=== PATIENT | male | born 1960 | race Caucasian/White ===

== ENCOUNTER 2016-11-02 17:51 | Emergency (ER) | payer BC ==
[2016-11-02 19:59] VITALS: BP 145/76
--- NOTE | 2016-11-02 20:18 | UC ---
Throat Pain/Nasal Nikolai HPI - HPI Summary HPI Summary: sinus congestion and cough for 2 weeks, seems to be getting worse. Malaise, PND , bright green drainage. He is diabetic, BG's a bit high with illness. No fever. No vomiting. No rash. Did get flu and pneumonia shots - History of Current Complaint Chief Complaint: UCRespiratory Stated Complaint: UPPER RESPIRATORY Time Seen by Provider: 11/02/16 19:44 Hx Obtained From: Patient Onset/Duration: Gradual Onset, Lasting Weeks - 2 Severity: Moderate Cough: Productive Associated Signs & Symptoms: Positive: Dysphagia, Wheezing - on occasion, Hoarseness, Sinus Discomfort, Nasal Discharge. Negative: Fever, Vomiting, Rash - Epiglottits Risk Factors Epiglottis Risk Factors: Negative - Allergies/Home Medications Allergies/Adverse Reactions: Allergies Allergy/AdvReac Type Severity Reaction Status Date / Time Enalapril Allergy Unknown Verified 11/02/16 19:51 Reaction Details PMH/Surg Hx/FS Hx/Imm Hx Endocrine History Of: Reports: Diabetes - type II, non insulin dependent Denies: Thyroid Disease, Hyperthyroidism, Hypothyroidism, Dyslipidemia Cardiovascular History Of: Reports: Hypertension Denies: Cardiac Disorders, Pacemaker/ICD, Myocardial Infarction, Congestive Heart Failure, Atrial Fibrillation, Deep Vein Thrombosis, Bleeding Disorders Respiratory History Of: Denies: Asthma GI/ History Of: Denies: Gastroesophageal Reflux, Ulcer, Gastrointestinal Bleed, Gall Bladder Disease, Kidney Stones, Diverticulitis, Renal Disease, Urosepsis Neurological History Of: Denies: TIA, CVA, Dementia, Seizures, Migraine Psychological History Of: Denies: Anxiety, Depression, Bipolar Disorder, Schizophrenia, Post Traumatic Stress Disorder Cancer History Of: Denies: Lung Cancer, Colorectal Cancer, Breast Cancer, Prostate Cancer, Cervical Cancer Other History Of: Negative For: HIV, Hepatitis B, Hepatitis C - Surgical History Surgical History: Yes Surgery Procedure, Year, and Place: bi lat shoulders, L knee, mass removed from abdomen 2002. right knee with DVT x3 following in right leg - Family History Known Family History: Positive: Cardiac Disease, Hypertension, Diabetes - Social History Occupation: Employed Full-time Lives: With Family Alcohol Use: None Substance Use Type: None Smoking Status (MU): Never Smoked Tobacco - Immunization History Most Recent Influenza Vaccination: FALL 2015 Most Recent Pneumonia Vaccination: FALL 2015 Review of Systems Constitutional: Chills, Fatigue Skin: Negative Eyes: Negative ENT: Sore Throat, Ear Ache, Nasal Discharge Respiratory: Cough Cardiovascular: Negative Gastrointestinal: Negative Genitourinary: Negative Motor: Negative Neurovascular: Negative Musculoskeletal: Negative Neurological: Negative Psychological: Negative All Other Systems Reviewed And Are Negative: Yes Physical Exam Triage Information Reviewed: Yes Appearance: Well-Appearing, No Pain Distress, Well-Nourished Vital Signs: Initial Vital Signs Temp 97.7 F 11/02/16 19:52 Pulse 82 11/02/16 19:52 Resp 20 11/02/16 19:52 BP 145/76 11/02/16 19:52 Pulse Ox 97 11/02/16 19:52 Vital Signs Reviewed: Yes Eye Exam: Normal ENT: Positive: Hearing grossly normal, Pharyngeal erythema, Nasal congestion, TMs normal, Muffled/hoarse voice - hoarse. Negative: Tonsillar swelling, Tonsillar exudate, Trismus Neck exam: Normal Neck: Positive: Supple Respiratory Exam: Normal Respiratory: Positive: Lungs clear, Normal breath sounds, No respiratory distress, No accessory muscle use - productive cough Cardiovascular Exam: Normal Musculoskeletal Exam: Normal Neurological Exam: Normal Psychological Exam: Normal Skin Exam: Normal Throat Pain/Nasal Course/Dx - Differential Dx/Diagnosis Differential Diagnosis/HQI/PQRI: Sinusitis, URI Provider Diagnoses: sinusitis Discharge - Discharge Plan Condition: Stable Disposition: HOME Prescriptions: Azithromycin TAB* [Zithromax TAB (Z-BRENTON) 250 mg #6 tabs] 2 tab PO .TODAY, THEN 1 DAILY #1 brenton Patient Education Materials: Sinusitis (ED) Referrals: Adali Tubbs MD [Primary Care Provider] -
== END 2016-11-02 20:21 | disposition home or self-care (01) ==
LOC: UCCORT 17:51
DX: J32.9 Chronic sinusitis, unspecified (principal); I10 Essential (primary) hypertension
CPT/HCPCS: 99212; G0463

== ENCOUNTER 2016-12-06 07:45 | Emergency (ER) | payer BC ==
--- NOTE | 2016-12-06 07:55 | UC ---
Respiratory Complaint HPI - HPI Summary HPI Summary: Cough and congestion. He has sinus pressure as well. chills last night. no known fever. this started on Tuesday. - History of Current Complaint Stated Complaint: SINUS/CHEST CONGESTION CHILLS Time Seen by Provider: 12/06/16 07:50 Hx Obtained From: Patient Onset/Duration: Gradual Onset, Lasting Days Severity Initially: Moderate Severity Currently: Moderate Character: Cough: Nonproductive Associated Signs And Symptoms: Positive: URI, Nasal Congestion. Negative: Pleuritic Chest Pain, Hemoptysis, Dizziness, Calf Swelling, Edema - Risk Factors Pulmonary Embolism Risk Factors: Negative - Allergies/Home Medications Allergies/Adverse Reactions: Allergies Allergy/AdvReac Type Severity Reaction Status Date / Time Enalapril Allergy Unknown Verified 11/02/16 19:51 Reaction Details PMH/Surg Hx/FS Hx/Imm Hx Endocrine History Of: Reports: Diabetes - type II, non insulin dependent Denies: Thyroid Disease, Hyperthyroidism, Hypothyroidism, Dyslipidemia Cardiovascular History Of: Reports: Hypertension Denies: Cardiac Disorders, Pacemaker/ICD, Myocardial Infarction, Congestive Heart Failure, Atrial Fibrillation, Deep Vein Thrombosis, Bleeding Disorders Respiratory History Of: Denies: Asthma GI/ History Of: Denies: Gastroesophageal Reflux, Ulcer, Gastrointestinal Bleed, Gall Bladder Disease, Kidney Stones, Diverticulitis, Renal Disease, Urosepsis Neurological History Of: Denies: TIA, CVA, Dementia, Seizures, Migraine Psychological History Of: Denies: Anxiety, Depression, Bipolar Disorder, Schizophrenia, Post Traumatic Stress Disorder Cancer History Of: Denies: Lung Cancer, Colorectal Cancer, Breast Cancer, Prostate Cancer, Cervical Cancer Other History Of: Negative For: HIV, Hepatitis B, Hepatitis C - Surgical History Surgical History: Yes Surgery Procedure, Year, and Place: bi lat shoulders, L knee, mass removed from abdomen 2002. right knee with DVT x3 following in right leg - Family History Known Family History: Positive: Cardiac Disease, Hypertension, Diabetes - Social History Alcohol Use: None Substance Use Type: None Smoking Status (MU): Never Smoked Tobacco - Immunization History Most Recent Influenza Vaccination: FALL 2015 Most Recent Pneumonia Vaccination: FALL 2015 Review of Systems All Other Systems Reviewed And Are Negative: Yes Physical Exam Triage Information Reviewed: Yes Appearance: Well-Appearing, No Pain Distress, Obese Vital Signs Reviewed: Yes Eye Exam: Normal Eyes: Positive: Conjunctiva Clear ENT: Positive: Normal ENT inspection, Hearing grossly normal, Pharyngeal erythema, Nasal congestion, TMs normal. Negative: TM bulging, TM dull, TM red, Tonsillar swelling, Tonsillar exudate, Trismus, Muffled/hoarse voice Neck exam: Normal Neck: Positive: Supple, Nontender, No Lymphadenopathy. Negative: Nuchal Rigidity, Tenderness @, Enlarged Nodes @ Respiratory Exam: Normal Respiratory: Positive: Chest non-tender, Lungs clear, Normal breath sounds, No respiratory distress, No accessory muscle use Cardiovascular Exam: Normal Cardiovascular: Positive: RRR, No Murmur, Pulses Normal, Brisk Capillary Refill Abdomen Description: Positive: Nontender, No Organomegaly, Soft. Negative: Distended, Guarding Musculoskeletal Exam: Normal Musculoskeletal: Positive: Strength Intact, ROM Intact, No Edema Neurological Exam: Normal Neurological: Positive: Alert, Muscle Tone Normal. Negative: Fatigued, Lethargic, Unresponsive Psychological Exam: Normal Skin Exam: Normal Skin: Negative: rashes Respiratory Course/Dx - Course Course Of Treatment: URI symptoms. no signs of being toxic in that he is pleasant and comfortable appearing. No clinical signs of pnuemonia. supportive care and he will return for any worsening symptoms. z pack to be filled if not improving. - Differential Dx/Diagnosis Differential Diagnosis/HQI/PQRI: Airway Obstruction, Foreign Body, Aspiration, Asthma, Bronchitis, CHF, Pulmonary Edema, Influenza, Laryngitis, Lower Resp Infection, MRSA, Pneumothorax, Pulmonary Embolism, Sinusitis, Tuberculosis Provider Diagnoses: upper respiratory infection Discharge - Discharge Plan Condition: Good Disposition: HOME Prescriptions: Azithromyxin BRENTON (NF) [Z-Brenton (Zithromax) 250 mg tabs #6] 2 tab PO .TODAY, THEN 1 DAILY #6 tab Patient Education Materials: Upper Respiratory Infection (ED) Forms: *Work Release Referrals: Adali Tubbs MD [Primary Care Provider] - If Needed
[2016-12-06 07:56] VITALS: BP 144/81
== END 2016-12-06 08:12 | disposition home or self-care (01) ==
LOC: UCCORT 07:45
DX: J06.9 Acute upper respiratory infection, unspecified (principal); E66.9 Obesity, unspecified
CPT/HCPCS: 99212; G0463

== ENCOUNTER 2016-12-08 07:06 | Emergency (ER) | payer BC ==
[2016-12-08] MEDS ORDERED: Levalbuterol 0.63MG/3ML NEB ONE (07:28)
[2016-12-08] MEDS ORDERED: Ipratropium 0.5MG/2.5ML NEB* 0.5 MG/2.5 ML NEB.SOLN ONE (07:29)
[2016-12-08] MEDS ORDERED: Levalbuterol 1.25MG/0.5ML NEB INH ONE (07:33)
[2016-12-08] MEDS ORDERED: Ipratropium 0.5MG/2.5ML NEB* 0.5 MG/2.5 ML NEB.SOLN INH ONE (07:33)
--- NOTE | 2016-12-08 07:42 | UC ---
Respiratory Complaint HPI - History of Current Complaint Chief Complaint: UCRespiratory Stated Complaint: RE-CK/SINUSES,CONGESTION Time Seen by Provider: 12/08/16 07:33 Hx Obtained From: Patient Onset/Duration: Gradual Onset, Lasting Days - Has been ill for 5 days and today , started feeling very congested with increased cough and tightness in chest. Timing: Intermittent Episodes Severity Initially: Mild Severity Currently: Moderate Pain Scale Used: 0-10 Numeric - 0 Character: Cough: Productive Aggravating Factors: Exertion, Deep Breaths Alleviating Factors: Nothing Associated Signs And Symptoms: Positive: Dyspnea, Chills - none, Nasal Congestion - Risk Factors Cardiac Risk Factors: Hypertension, Diabetes Pseudomonas Risk Factors: Negative Tuberculosis Risk Factors: Negative - See list - Allergies/Home Medications Allergies/Adverse Reactions: Allergies Allergy/AdvReac Type Severity Reaction Status Date / Time Enalapril Allergy Unknown Verified 12/08/16 07:13 Reaction Details PMH/Surg Hx/FS Hx/Imm Hx Endocrine History Of: Reports: Diabetes - type II, non insulin dependent Denies: Thyroid Disease, Hyperthyroidism, Hypothyroidism, Dyslipidemia - Recent treatment with Azithromycin for 3 days . No t helping. Cardiovascular History Of: Reports: Hypertension Denies: Cardiac Disorders, Pacemaker/ICD, Myocardial Infarction, Congestive Heart Failure, Atrial Fibrillation, Deep Vein Thrombosis, Bleeding Disorders Respiratory History Of: Denies: Asthma GI/ History Of: Denies: Gastroesophageal Reflux, Ulcer, Gastrointestinal Bleed, Gall Bladder Disease, Kidney Stones, Diverticulitis, Renal Disease, Urosepsis Neurological History Of: Denies: TIA, CVA, Dementia, Seizures, Migraine Psychological History Of: Denies: Anxiety, Depression, Bipolar Disorder, Schizophrenia, Post Traumatic Stress Disorder Cancer History Of: Denies: Lung Cancer, Colorectal Cancer, Breast Cancer, Prostate Cancer, Cervical Cancer Other History Of: Negative For: HIV, Hepatitis B, Hepatitis C - Surgical History Surgical History: Yes Surgery Procedure, Year, and Place: bi lat shoulders, L knee, mass removed from abdomen 2002. right knee with DVT x3 following in right leg - Family History Known Family History: Positive: Cardiac Disease, Hypertension, Diabetes - Social History Alcohol Use: None Substance Use Type: None Smoking Status (MU): Never Smoked Tobacco - Immunization History Most Recent Influenza Vaccination: FALL 2015 Most Recent Pneumonia Vaccination: FALL 2015 Review of Systems Constitutional: Chills, Fatigue Skin: Negative Eyes: Negative ENT: Nasal Discharge Respiratory: Shortness Of Breath - with exertion., Cough - productive of yellow sputum. Cardiovascular: Negative Gastrointestinal: Negative Genitourinary: Negative Motor: Negative Neurovascular: Negative Musculoskeletal: Negative Neurological: Negative Psychological: Negative All Other Systems Reviewed And Are Negative: Yes Physical Exam Triage Information Reviewed: Yes Appearance: Well-Appearing Vital Signs: Initial Vital Signs Temp 98.3 F 12/08/16 07:14 Pulse 77 12/08/16 07:14 Resp 18 12/08/16 07:14 BP 152/86 12/08/16 07:14 Pulse Ox 96 12/08/16 07:14 ENT Exam: Other - clear nasal discharge. No blood. Throat ia mildly erythematous. ENT: Positive: Pharyngeal erythema Dental Exam: Normal Neck exam: Normal Neck: Positive: Supple, Nontender Respiratory: Positive: Chest non-tender, Wheezing - +2 diffusely Cardiovascular Exam: Normal Cardiovascular: Positive: RRR, No Murmur Abdomen Description: Positive: Nontender, No Organomegaly, Soft Bowel Sounds: Positive: Present Musculoskeletal Exam: Normal Neurological Exam: Normal Psychological Exam: Normal Skin Exam: Normal UC Diagnostic Evaluation - Laboratory O2 Sat by Pulse Oximetry: 96 Re-Evaluation - Re-Evaluation First Eval Change: Improved - Lungs are now clear to auscultation. Respiratory Course/Dx - Course Course Of Treatment: Patient had neb xopenex and atrovent. Lungs now- - Differential Dx/Diagnosis Differential Diagnosis/HQI/PQRI: Bronchitis Provider Diagnoses: acute bronchitis, viral Discharge - Discharge Plan Condition: Improved Disposition: HOME Prescriptions: Albuterol HFA INHALER* [Ventolin HFA Inhaler*] 1 puff INH Q4H PRN #1 mdi PRN Reason: Sob/Wheezing Patient Education Materials: Acute Bronchitis (ED) Additional Instructions: May try Mucinex DM one tab every 12 hours. Use humidifier. Increase fluids to stay well hydrated. Use the albuterol as needed for cough and wheezing. Saline nose spray for nasal congestion. May use Coriciden HB for congestion as well. Cepacol throat lozenges can help the cough , as well.
[2016-12-08 08:42] VITALS: BP 132/66
== END 2016-12-08 08:45 | disposition home or self-care (01) ==
LOC: UCCORT 07:06
DX: J20.8 Acute bronchitis due to other specified organisms (principal)
CPT/HCPCS: 99212; A9270-GY; G0463; J7644

== ENCOUNTER 2017-09-09 12:12 | Emergency (ER) | payer BC ==
[2017-09-09 13:47] VITALS: BP 147/86
--- NOTE | 2017-09-09 14:10 | UC ---
Throat Pain/Nasal Nikolai HPI - HPI Summary HPI Summary: TWO WEEKS OF WORSENING SINUS PRESSURE AND PAIN - History of Current Complaint Chief Complaint: UCRespiratory Stated Complaint: SINUS COUGH UPPER RESPIRATORY Time Seen by Provider: 09/09/17 13:48 Hx Obtained From: Patient Onset/Duration: Gradual Onset, Lasting Weeks, Still Present Severity: Moderate Pain Intensity: 6 Pain Scale Used: 0-10 Numeric Cough: Nonproductive Associated Signs & Symptoms: Positive: Sinus Discomfort, Nasal Discharge - Epiglottits Risk Factors Epiglottis Risk Factors: Negative - Allergies/Home Medications Allergies/Adverse Reactions: Allergies Allergy/AdvReac Type Severity Reaction Status Date / Time Enalapril Allergy Unknown Verified 09/09/17 13:40 Reaction Details PMH/Surg Hx/FS Hx/Imm Hx Previously Healthy: Yes Other History Of: Negative For: HIV, Hepatitis B, Hepatitis C - Surgical History Surgical History: Yes Surgery Procedure, Year, and Place: bi lat shoulders, L knee, mass removed from abdomen 2002. right knee with DVT x3 following in right leg - Family History Known Family History: Positive: Cardiac Disease, Hypertension, Diabetes - Social History Occupation: Employed Full-time Lives: With Family Alcohol Use: None Substance Use Type: None Smoking Status (MU): Never Smoked Tobacco - Immunization History Most Recent Influenza Vaccination: 2016 Most Recent Pneumonia Vaccination: FALL 2015 Review of Systems Constitutional: Negative Skin: Negative Eyes: Negative ENT: Sinus Congestion, Sinus Pain/Tenderness Respiratory: Cough Cardiovascular: Negative Gastrointestinal: Negative Genitourinary: Negative Motor: Negative Neurovascular: Negative Musculoskeletal: Negative Neurological: Negative Psychological: Negative Is Patient Immunocompromised?: No All Other Systems Reviewed And Are Negative: Yes Physical Exam Triage Information Reviewed: Yes Appearance: No Pain Distress, Well-Nourished, Ill-Appearing - MILDLY Vital Signs: Initial Vital Signs Temp 97.4 F 09/09/17 13:41 Pulse 95 09/09/17 13:41 Resp 18 09/09/17 13:41 BP 147/86 09/09/17 13:41 Pulse Ox 99 09/09/17 13:41 Vital Signs Reviewed: Yes Eye Exam: Normal ENT: Positive: Nasal congestion, Nasal drainage, TM dull Dental Exam: Normal Neck exam: Normal Neck: Positive: Supple, Nontender, No Lymphadenopathy Respiratory Exam: Normal Respiratory: Positive: Chest non-tender, Lungs clear, Normal breath sounds, No respiratory distress, No accessory muscle use Cardiovascular Exam: Normal Cardiovascular: Positive: RRR, No Murmur, Pulses Normal, Brisk Capillary Refill Abdominal Exam: Normal Musculoskeletal Exam: Normal Neurological Exam: Normal Psychological Exam: Normal Skin Exam: Normal Throat Pain/Nasal Course/Dx - Differential Dx/Diagnosis Differential Diagnosis/HQI/PQRI: Pharyngitis, Sinusitis, Tonsillitis, URI Provider Diagnoses: SINUSITIS Discharge - Discharge Plan Condition: Stable Disposition: HOME Prescriptions: Amoxicillin/Clavulanate TAB* [Augmentin TAB 875*] 875 mg PO BID #20 tab Patient Education Materials: Sinusitis (ED) Referrals: Adali Tubbs MD [Primary Care Provider] -
== END 2017-09-09 14:04 | disposition home or self-care (01) ==
LOC: UCCORT 12:12
DX: J32.9 Chronic sinusitis, unspecified (principal)
CPT/HCPCS: 99212; G0463

== ENCOUNTER 2017-12-26 15:54 | Emergency (ER) | payer BC ==
[2017-12-26 17:47] VITALS: BP 129/74
--- NOTE | 2017-12-26 17:59 | UC ---
Respiratory Complaint HPI - HPI Summary HPI Summary: Pt presents to reporting 2 weeks of sinus congestion and 1 week "Settled in throat" Pt reports coarse, intermittent cough with green sputum. no fevers, + fatigue. No n/v. + ear pain. + sinus congestion. no sore throat. No abd pain. No n/v/d No AUGUSTIN, vision changes. Pt without h/o lung dx. Pt states has chest pain that he thinks is muscular and related to cough. + fevers low grade 100. Taking APAP. No OTC meds for cough/congestion second to concern for BP Pt's medications reviewed this visit - History of Current Complaint Chief Complaint: UCRespiratory Stated Complaint: SINUS/CHEST CONGESTION/COUGH Time Seen by Provider: 12/26/17 17:56 Hx Obtained From: Patient Onset/Duration: Gradual Onset Timing: Constant Severity Initially: Moderate Severity Currently: Moderate Pain Intensity: 5 Pain Scale Used: 0-10 Numeric Character: Cough: Productive, Sputum Description: - green - Allergies/Home Medications Allergies/Adverse Reactions: Allergies Allergy/AdvReac Type Severity Reaction Status Date / Time enalapril Allergy Rash Verified 12/26/17 17:37 enalaprilat [From Vasotec] Allergy Rash Verified 12/26/17 17:37 sitagliptin [From Januvia] Allergy Rash Verified 12/26/17 17:37 Home Medications: Home Medications Guaifenesin/Dextromethorphan [Mucinex Dm ER 600-30 mg Tablet] 1 each PO BID PRN 12/26/17 [History Confirmed 12/26/17] Ibuprofen TAB* [Motrin TAB* 800 MG] 800 mg PO Q6H PRN 12/26/17 [History Confirmed 12/26/17] PMH/Surg Hx/FS Hx/Imm Hx Previously Healthy: Yes Endocrine History: Diabetes - no insulin Cardiovascular History: Hypertension Other History Of: Negative For: HIV, Hepatitis B, Hepatitis C - Surgical History Surgical History: Yes Surgery Procedure, Year, and Place: bi lat shoulders, L knee, mass removed from abdomen 2002. right knee with DVT x3 following in right leg - Family History Known Family History: Positive: Cardiac Disease, Hypertension, Diabetes - Social History Occupation: Employed Full-time Lives: With Family Alcohol Use: None Substance Use Type: None Smoking Status (MU): Never Smoked Tobacco - Immunization History Most Recent Influenza Vaccination: 2016 Most Recent Pneumonia Vaccination: FALL 2016 Review of Systems Constitutional: Fever Respiratory: Shortness Of Breath, Cough All Other Systems Reviewed And Are Negative: Yes Physical Exam Triage Information Reviewed: Yes Appearance: Well-Appearing, No Pain Distress - coarse, intermittent cough, Well- Nourished Vital Signs: Initial Vital Signs Temp 99.1 F 12/26/17 17:40 Pulse 90 12/26/17 17:40 Resp 20 12/26/17 17:40 BP 129/74 12/26/17 17:40 Pulse Ox 97 12/26/17 17:40 Vital Signs Reviewed: Yes Eye Exam: Normal ENT Exam: Normal ENT: Positive: Hearing grossly normal, Pharynx normal, Other - right ear ++ erythema, + fluid left TM wnl turbinates boggy + PND + erythema, no exudate Dental Exam: Normal Neck exam: Normal Neck: Positive: Supple, Nontender, No Lymphadenopathy Respiratory: Positive: Other: - intermittent coarse cough scattered wheeze, no rhonci speaking full sentences no accessory muscle use. Negative: Chest non- tender - mild anterior chest wall pain b/l, reproducible Cardiovascular Exam: Normal Cardiovascular: Positive: RRR, No Murmur Abdominal Exam: Normal Abdomen Description: Positive: Nontender, No Organomegaly, Soft Bowel Sounds: Positive: Present Musculoskeletal Exam: Normal Musculoskeletal: Positive: Strength Intact Neurological Exam: Normal Neurological: Positive: Alert Psychological Exam: Normal Psychological: Positive: Normal Response To Family Skin Exam: Normal UC Diagnostic Evaluation - Laboratory O2 Sat by Pulse Oximetry: 97 - EKG Cardiac Rate: NL - 57 Cardiac Rhythm: Sinus: Normal Ectopy: None ST Segment: Non-Specific - inverted T wave 3, no change from 2006 Respiratory Course/Dx - Course Course Of Treatment: Pt with sinus congestions settled in chest. + coarse cough. + green sputum. + wheeze. Will give abx. albuterol (pt has spacer). flonase. secretion precaution. apap/motrin. return precaution. Did reviewed EKG- no acute change, no concerns - Differential Dx/Diagnosis Provider Diagnoses: acute bronchitis Discharge - Sign-Out/Discharge Documenting (check all that apply): Discharge - Discharge Plan Condition: Stable Disposition: HOME Prescriptions: Albuterol HFA INHALER* [Ventolin HFA Inhaler*] 1 - 2 puff INH Q4H PRN #1 mdi PRN Reason: wheeze Amoxicillin/Clavulanate TAB* [Augmentin TAB 875*] 875 mg PO BID #20 tab Fluticasone NASAL SPRAY 50MCG* [Flonase NASAL SPRAY 50MCG*] 2 spray BOTH NARES DAILY #1 btl Patient Education Materials: Acute Bronchitis (ED) Referrals: Adali Tubbs MD [Primary Care Provider] - Additional Instructions: - Stay well hydrated. Drink plenty of non-alcoholic, non-caffinated beverages. - Take antibiotics as prescribed until gone - use inhaler,2 puffs every 4 hours, today and tomorrow. Then every 6 hours as needed. It is recommended you use your spacer - Use nasal spray as instructed. - These infections are spread by secretions - do NOT share eating or drinking utensils - clean items you share with other people such as cell phones, computer mouse, TV remote, computer tablets, etc. After you have taken antibiotics for 2-3 days, change your toothbrush and your pillowcase. - get plenty of restful sleep - humidify the air in the room where you sleep - boil water, run a hot steam shower, vaporizer, cups of water by heat register - okay to take over the counter cough medication - contact your doctor, return here, or go to the emergency department with questions or concerns - Billing Disposition and Condition Condition: STABLE Disposition: HOME
== END 2017-12-26 18:22 | disposition home or self-care (01) ==
LOC: UCCORT 15:54
DX: J20.9 Acute bronchitis, unspecified (principal); R07.9 Chest pain, unspecified; R50.9 Fever, unspecified; Z88.8 Allergy status to other drugs, medicaments and biological substances; E11.9 Type 2 diabetes mellitus without complications; I10 Essential (primary) hypertension; Z82.49 Family history of ischemic heart disease and other diseases of the circulatory system
CPT/HCPCS: 93005; 99212; G0463

== ENCOUNTER 2017-12-31 07:31 | Emergency (ER) | payer BC ==
[2017-12-31 07:58] VITALS: BP 157/96
--- NOTE | 2017-12-31 08:01 | UC ---
Respiratory Complaint HPI - HPI Summary HPI Summary: 57 year old male with cough. pt seen here on 12/26/17 for URI, placed on Augmentin 875mg BID. He returns here today d/t not feeling better. Pt states having more fatigue, coughing, chest congestion, sinus congestion, on/off ear pain. Denies fever. Not necessarily worsened but not much improved. Feels it is settling in his chest perhaps a little more. Travels in 12 days and does not symptoms to worsen. [ End ] - History of Current Complaint Chief Complaint: UCRespiratory Stated Complaint: RE-CHECK - COUGH/CONGESTION Time Seen by Provider: 12/31/17 07:57 Hx Obtained From: Patient Onset/Duration: Gradual Onset Timing: Constant Severity Initially: Mild Severity Currently: Moderate Pain Intensity: 6 Character: Cough: Productive Aggravating Factors: Exertion Alleviating Factors: Bronchodilator Associated Signs And Symptoms: Positive: Wheezing, Nasal Congestion - Allergies/Home Medications Allergies/Adverse Reactions: Allergies Allergy/AdvReac Type Severity Reaction Status Date / Time enalapril Allergy Rash Verified 12/31/17 07:47 enalaprilat [From Vasotec] Allergy Rash Verified 12/31/17 07:47 sitagliptin [From Januvia] Allergy Rash Verified 12/31/17 07:47 Home Medications: Home Medications Cetirizine* [ZyrTEC 10 MG TAB*] 10 mg PO DAILY 12/31/17 [History Confirmed 12/31] PMH/Surg Hx/FS Hx/Imm Hx Previously Healthy: Yes Endocrine History: Diabetes, Dyslipidemia Cardiovascular History: Hypertension Respiratory History: Bronchitis Other History Of: Negative For: HIV, Hepatitis B, Hepatitis C - Surgical History Surgical History: Yes Surgery Procedure, Year, and Place: bi lat shoulders, L knee, mass removed from abdomen 2002. 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 Lives: With Family Alcohol Use: None Substance Use Type: None Smoking Status (MU): Never Smoked Tobacco - Immunization History Most Recent Influenza Vaccination: 2016 Most Recent Pneumonia Vaccination: FALL 2015 Review of Systems Constitutional: Fatigue ENT: Sore Throat, Ear Ache, Nasal Discharge, Sinus Congestion, Sinus Pain/ Tenderness Respiratory: Shortness Of Breath, Cough Is Patient Immunocompromised?: No All Other Systems Reviewed And Are Negative: Yes Physical Exam Triage Information Reviewed: Yes Appearance: Well-Appearing, No Pain Distress, Well-Nourished Vital Signs: Initial Vital Signs Temp 99.3 F 12/31/17 07:43 Pulse 80 12/31/17 07:43 Resp 16 12/31/17 07:43 BP 157/96 12/31/17 07:43 Pulse Ox 97 12/31/17 07:43 Vital Signs Reviewed: Yes Eye Exam: Normal ENT Exam: Normal Dental Exam: Normal Neck exam: Normal Neck: Positive: 1 Respiratory Exam: Normal Respiratory: Positive: No respiratory distress, No accessory muscle use, Wheezing - mild expiratory RLL. Negative: Respiratory distress, Decreased breath sounds, Crackles, Rhonchi, Stridor Cardiovascular Exam: Normal Musculoskeletal Exam: Normal Neurological Exam: Normal Psychological Exam: Normal Skin Exam: Normal UC Diagnostic Evaluation - Laboratory O2 Sat by Pulse Oximetry: 97 Respiratory Course/Dx - Course Course Of Treatment: Patient declined xray. He is aware of risks. He states no S /S of lymphoma . Treat as CAP. I advised to get xray but he declined d/t previous radiation from lymphoma but aware he could have reactivation not Dx without the imaging and wants to wait at this time and if sx persist or worsen then get imaging. - Differential Dx/Diagnosis Differential Diagnosis/HQI/PQRI: Bronchitis, Lower Resp Infection, Sinusitis Provider Diagnoses: 1-Bronchitis. 2- hypertension Discharge - Sign-Out/Discharge Documenting (check all that apply): Discharge - Discharge Plan Condition: Good Disposition: HOME Prescriptions: Benzonatate CAP* [Tessalon 100 MG CAP*] 100 mg PO TID 10 Days #20 cap Doxycycline Hyclate 100 mg PO BID 10 Days #20 tablet Fluticasone NASAL SPRAY 50MCG* [Flonase NASAL SPRAY 50MCG*] 2 spray BOTH NARES DAILY #1 btl Patient Education Materials: Acute Bronchitis (ED) Referrals: Adali Tubbs MD [Primary Care Provider] - 3 Days Additional Instructions: If your symptoms are not improved you will need additional work up at Urgent care or your PCP . - Billing Disposition and Condition Condition: GOOD Disposition: HOME
== END 2017-12-31 08:23 | disposition home or self-care (01) ==
LOC: UCCORT 07:31
DX: J40 Bronchitis, not specified as acute or chronic (principal); Z88.8 Allergy status to other drugs, medicaments and biological substances; E11.9 Type 2 diabetes mellitus without complications; I10 Essential (primary) hypertension
CPT/HCPCS: 99212; G0463

== ENCOUNTER 2018-02-05 12:40 | Emergency (ER) | payer BC ==
[2018-02-05 13:19] LABS: ABS Basophils 0 10^3/ul (0-0.2); ABS Eosinophils 0 10^3/ul (0-0.6); ABS Lymphocytes 1.3 10^3/ul (1.0-4.8); ABS Monocytes 0.7 10^3/ul (0-0.8); ABS Neutrophils 6.8 10^3/ul (1.5-7.7); ABS Nucleated RBC 0 10^3/ul; Eosinophil % 0.4 % (0-6); Hematocrit 43 % (42-52); Hemoglobin 14.7 g/dl (14.0-18.0); Lymphocyte % 15.1 % (25-47); Mean Corpuscular HGB Conc 34 g/dl (31-36); Mean Corpuscular Hemoglobin 28 pg (27-31); Mean Corpuscular Volume 81 fL (80-94); Mean Platelet Volume 8.7 um3 (7.4-10.4); Nucleated Red Blood Cells % 0.1; Platelet Count 186 10^3/ul (150-450); Red Blood Count 5.34 10^6/ul (4.0-5.4); Red Cell Distribution Width 14 % (10.5-15); White Blood Count 8.9 10^3/ul (3.5-10.8)
[2018-02-05 13:35] LABS: EGFR Non-African American 76.7 (>60)
[2018-02-05 14:49] LABS: Urine Appearance Cloudy; Urine Blood Negative (Negative); Urine Color Yellow; Urine Ketones Trace (Negative); Urine Protein 1+(30 mg/dL) (Negative); Urine Specific Gravity 1.026 (1.010-1.030); Urine Urobilinogen Negative (Negative)
[2018-02-05] MEDS ORDERED: metFORMIN* 500 MG TAB PO ONE (17:42)
[2018-02-05] MEDS ORDERED: Glimepiride (NF) 2 MG TAB PO ONE (17:46)
--- NOTE | 2018-02-05 18:39 | ED ---
Zion Garcia Tiffany, scribed for Beto Kearns MD on 02/05/18 at 1327 . Psychiatric Complaint - HPI Summary HPI Summary: The patient is a 58 y/o M [facility] complains of suicidal ideation since two days ago. Symptoms aggravated by nothing. Symptoms alleviated by nothing. Reports plans to hurt himself. Denies drug and alcohol use today. His counselor advised patient to go to ED if suicidal ideation worsens. - History Of Current Complaint Chief Complaint: EDMentalHealth Time Seen by Provider: 02/05/18 12:53 Hx Obtained From: Patient Onset/Duration: Lasting Days - 2 days, Still Present Timing: Constant Aggravating Factor(s): Nothing Alleviating Factor(s): Nothing Associated Signs And Symptoms: Positive: Negative - Drug use or alcohol use Has Suicidal: Reports: Thoughts, With A Plan - Allergies/Home Medications Allergies/Adverse Reactions: Allergies Allergy/AdvReac Type Severity Reaction Status Date / Time enalapril Allergy Rash Verified 12/31/17 07:47 enalaprilat [From Vasotec] Allergy Rash Verified 12/31/17 07:47 sitagliptin [From Januvia] Allergy Rash Verified 12/31/17 07:47 Home Medications: Home Medications Fluticasone NASAL SPRAY 50MCG* [Flonase NASAL SPRAY 50MCG*] 1 spray BOTH NARES DAILY 02/05/18 [History Confirmed 02/05/18] Glimepiride (NF) 0.5 mg PO BID WITH MEALS 02/05/18 [History Confirmed 02/05/18] Quinapril (NF) [Accupril (NF)] 40 mg PO DAILY 02/05/18 [History Confirmed ] metFORMIN* [Glucophage 1000 MG TAB *] 1,000 mg PO QAM 02/05/18 [History Confirmed 02/05/18] metFORMIN* [Glucophage 1000 MG TAB *] 500 mg PO QPM 02/05/18 [History Confirmed 02/05/18] PMH/Surg Hx/FS Hx/Imm Hx Previously Healthy: No Endocrine/Hematology History: Reports: Hx Diabetes - type II, non insulin dependent Denies: Hx Thyroid Disease Cardiovascular History: Reports: Hx Hypertension Denies: Hx Congestive Heart Failure, Hx Deep Vein Thrombosis, Hx Myocardial Infarction, Hx Pacemaker/ICD Respiratory History: Denies: Hx Asthma, Hx Lung Cancer GI History: Denies: Hx Gall Bladder Disease, Hx Gastrointestinal Bleed, Hx Ulcer, Hx Urosepsis History: Denies: Hx Kidney Stones, Hx Renal Disease Neurological History: Denies: Hx Dementia, Hx Migraine, Hx Seizures, Hx Transient Ischemic Attacks (TIA) Psychiatric History: Reports: Hx Depression - Cancer History Cancer Type, Location 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 right knee with DVT x3 following in right leg Infectious Disease History: No Infectious Disease History: Denies: Hx Clostridium Difficile, Hx Hepatitis, Hx Human Immunodeficiency Virus (HIV), Hx of Known/Suspected MRSA, Hx Shingles, Hx Tuberculosis, Hx Known/ Suspected VRE, Hx Known/Suspected VRSA, History Other Infectious Disease, Traveled Outside the [place] in Last 30 Days - Family History Known Family History: Positive: Cardiac Disease, Hypertension, Diabetes - Social History Alcohol Use: None Hx Substance Use: No Substance Use Type: Reports: None Hx Tobacco Use: No Smoking Status (MU): Never Smoked Tobacco Review of Systems Negative: Fever Positive: Other - Suicidal ideation, plans to hurt himself; NEGATIVE: drug use or alcohol use All Other Systems Reviewed And Are Negative: Yes Physical Exam - Summary Physical Exam Summary: General: well-appearing, no pain distress Skin: warm, color reflects adequate perfusion, dry Head: normal Eyes: EOMI, SAM ENT: normal Neck: supple, nontender Respiratory: CTA, breath sounds present Cardiovascular: RRR Abdomen: soft, nontender Bowel: present Musculoskeletal: normal, strength/ROM intact Neurological: normal, sensory/motor intact, A&O x3 Psychological: affect/mood appropriate Triage Information Reviewed: Yes Vital Signs On Initial Exam: Initial Vitals Temp Pulse Resp BP Pulse Ox 99.2 F 89 16 167/85 96 02/05/18 12:46 02/05/18 12:46 02/05/18 12:46 02/05/18 12:46 02/05/18 12:46 Vital Signs Reviewed: Yes Diagnostics - Vital Signs Vital Signs Temp Pulse Resp BP Pulse Ox 02/05/18 12:46 99.2 F 89 16 167/85 96 - Laboratory Lab Results: Lab Results 02/05/18 02/05/18 02/05/18 Range/Units 13:11 13:11 14:37 WBC 8.9 (3.5-10.8) 10^3/ul RBC 5.34 (4.0-5.4) 10^6/ul Hgb 14.7 (14.0-18.0) g/dl Hct 43 (42-52) % MCV 81 (80-94) fL MCH 28 (27-31) pg MCHC 34 (31-36) g/dl RDW 14 (10.5-15) % Plt Count 186 (150-450) 10^3/ul MPV 8.7 (7.4-10.4) um3 Neut % (Auto) 76.1 (38-83) % Lymph % (Auto) 15.1 L (25-47) % [place] % (Auto) 8.0 H (0-7) % Eos % (Auto) 0.4 (0-6) % Baso % (Auto) 0.4 (0-2) % Absolute Neuts (auto) 6.8 (1.5-7.7) 10^3/ul Absolute Lymphs (auto) 1.3 (1.0-4.8) 10^3/ul Absolute Monos (auto) 0.7 (0-0.8) 10^3/ul Absolute Eos (auto) 0 (0-0.6) 10^3/ul Absolute Basos (auto) 0 (0-0.2) 10^3/ul Absolute Nucleated RBC 0 10^3/ul Nucleated RBC % 0.1 Sodium 138 L (139-145) mmol/L Potassium 3.5 (3.5-5.0) mmol/L Chloride 113 H (101-111) mmol/L Carbon Dioxide 19 L (22-32) mmol/L Anion Gap 6 (2-11) mmol/L BUN 23 (6-24) mg/dL Creatinine 1.00 (0.67-1.17) mg/dL Est GFR ( Amer) 98.7 (>60) Est GFR (Non-Af Amer) 76.7 (>60) BUN/Creatinine Ratio 23.0 H (8-20) Glucose 136 H (70-100) mg/dL Calcium 8.9 (8.6-10.3) mg/dL Total Bilirubin 0.60 (0.2-1.0) mg/dL AST 23 (13-39) U/L ALT 33 (7-52) U/L Alkaline Phosphatase 72 (34-104) U/L Total Protein 6.4 (6.4-8.9) g/dL Albumin 4.2 (3.2-5.2) g/dL Globulin 2.2 (2-4) g/dL Albumin/Globulin Ratio 1.9 (1-3) TSH 1.08 (0.34-5.60) mcIU/mL Urine Color Yellow Urine Appearance Cloudy Urine pH 5.0 (5-9) Ur Specific [place] 1.026 (1.010-1.030) Urine Protein 1+(30 mg/dl) A (Negative) Urine Ketones Trace A (Negative) Urine Blood Negative (Negative) Urine Nitrate Negative (Negative) Urine Bilirubin Negative (Negative) Urine Urobilinogen Negative (Negative) Ur Leukocyte Esterase Negative (Negative) Urine WBC (Auto) Absent (Absent) Urine RBC (Auto) Absent (Absent) Ur Squamous Epith Cells Present A (Absent) Urine Bacteria Absent (Absent) Hyaline Casts Present A (Absent) Urine Glucose 1+(50 mg/dl) A (Negative) Urine Ascorbic Acid * A (Negative) Salicylates < 2.50 (<30) mg/dL Urine Opiates Screen (None Detect) Acetaminophen < 15 mcg/mL Ur Barbiturates Screen (None Detect) Ur Phencyclidine Scrn (None Detect) Ur Amphetamines Screen (None Detect) U Benzodiazepines Scrn (None Detect) Urine Cocaine Screen (None Detect) U Cannabinoids Screen (None Detect) Serum Alcohol < 10 (<10) mg/dL 02/05/18 Range/Units 14:37 WBC (3.5-10.8) 10^3/ul RBC (4.0-5.4) 10^6/ul Hgb (14.0-18.0) g/dl Hct (42-52) % MCV (80-94) fL MCH (27-31) pg MCHC (31-36) g/dl RDW (10.5-15) % Plt Count (150-450) 10^3/ul MPV (7.4-10.4) um3 Neut % (Auto) (38-83) % Lymph % (Auto) (25-47) % [place] % (Auto) (0-7) % Eos % (Auto) (0-6) % Baso % (Auto) (0-2) % Absolute Neuts (auto) (1.5-7.7) 10^3/ul Absolute Lymphs (auto) (1.0-4.8) 10^3/ul Absolute Monos (auto) (0-0.8) 10^3/ul Absolute Eos (auto) (0-0.6) 10^3/ul Absolute Basos (auto) (0-0.2) 10^3/ul Absolute Nucleated RBC 10^3/ul Nucleated RBC % Sodium (139-145) mmol/L Potassium (3.5-5.0) mmol/L Chloride (101-111) mmol/L Carbon Dioxide (22-32) mmol/L Anion Gap (2-11) mmol/L BUN (6-24) mg/dL Creatinine (0.67-1.17) mg/dL Est GFR ( Amer) (>60) Est GFR (Non-Af Amer) (>60) BUN/Creatinine Ratio (8-20) Glucose (70-100) mg/dL Calcium (8.6-10.3) mg/dL Total Bilirubin (0.2-1.0) mg/dL AST (13-39) U/L ALT (7-52) U/L Alkaline Phosphatase (34-104) U/L Total Protein (6.4-8.9) g/dL Albumin (3.2-5.2) g/dL Globulin (2-4) g/dL Albumin/Globulin Ratio (1-3) TSH (0.34-5.60) mcIU/mL Urine Color Urine Appearance Urine pH (5-9) Ur Specific [place] (1.010-1.030) Urine Protein (Negative) Urine Ketones (Negative) Urine Blood (Negative) Urine Nitrate (Negative) Urine Bilirubin (Negative) Urine Urobilinogen (Negative) Ur Leukocyte Esterase (Negative) Urine WBC (Auto) (Absent) Urine RBC (Auto) (Absent) Ur Squamous Epith Cells (Absent) Urine Bacteria (Absent) Hyaline Casts (Absent) Urine Glucose (Negative) Urine Ascorbic Acid (Negative) Salicylates (<30) mg/dL Urine Opiates Screen None detected (None Detect) Acetaminophen mcg/mL Ur Barbiturates Screen None detected (None Detect) Ur Phencyclidine Scrn None detected (None Detect) Ur Amphetamines Screen None detected (None Detect) U Benzodiazepines Scrn None detected (None Detect) Urine Cocaine Screen None detected (None Detect) U Cannabinoids Screen None detected (None Detect) Serum Alcohol (<10) mg/dL Result Diagrams: 02/05/18 13:11 02/05/18 13:11 Lab Statement: Any lab studies that have been ordered have been reviewed, and results considered in the medical decision making process. Course/Dx - Course Course Of Treatment: Medications reviewed. Allergies noted. Patient signed out to Dr. Iglesias at shift change, awaiting MHE. - Differential Dx/Clinical Impression Provider Diagnosis: Mental health problem Discharge - Sign-Out/Discharge Documenting (check all that apply): Sign-Out Patient Signing out patient TO: Irwin Iglesias - At shift change, awaiting MHE. - Discharge Plan Condition: Stable Disposition[place] [facility] Referrals: Adali Tubbs MD [Primary Care Provider] - - Billing Disposition and Condition Condition: STABLE Disposition: [facility] The documentation as recorded by the Zion ferguson Tiffany accurately reflects the service I personally performed and the decisions made by me, Beto Kearns MD.
[2018-02-06] MEDS ORDERED: metFORMIN* 500 MG TAB PO ONE (06:42)
[2018-02-06] MEDS ORDERED: Glimepiride (NF) 2 MG TAB PO ONE (06:44)
[2018-02-06] MEDS ORDERED: QUINAPRIL PO ONE (06:45)
[2018-02-06] MEDS ORDERED: Lisinopril TAB* 10 MG PO ONE (07:00)
--- NOTE | 2018-02-06 07:21 | PN ---
ED Flex Patient Progress Note Date of Service: 02/06/18 Subjective: This is a 58 year-old M who is pending admission to [facility] versus transfer to another psychiatric facility secondary to depression/SI. Patient is unsure if this will be helpful for him however and would like to discuss with psychiatrist about disposition prior to disposition. Pt offers no other complaints at this time is sleeping upon arrival, eating well and comfortable at this time. Give patient's morning medications of metformin, glimepride and quinapril. Objective: Vitals: Most recent vital signs documented below. General NAD, Alert and oriented x3. Heart: rrr at 80 bpm Lungs: CTA or with rales, rhonchi, wheezing Laboratory: Current laboratory results documented below. Assessment: mental health problem pending psych transfer Plan: Pending psychiatric transfer / admit / discharge pending discussion with psychiatrist, patient was signed out to Dr Iglesias and then Dr Sanchez. However will follow up daily to check in on patient. Vital Signs Temp Pulse Resp BP Pulse Ox 95.9 F 92 15 160/71 100 02/05/18 15:56 02/05/18 15:56 02/05/18 15:56 02/05/18 15:56 02/05/18 15:56 Lab Results - Entire Visit 02/05/18 02/05/18 02/05/18 19:28 14:37 14:37 WBC RBC Hgb Hct MCV MCH MCHC RDW Plt Count MPV Neut % (Auto) Lymph % (Auto) [place] % (Auto) Eos % (Auto) Baso % (Auto) Absolute Neuts (auto) Absolute Lymphs (auto) Absolute Monos (auto) Absolute Eos (auto) Absolute Basos (auto) Absolute Nucleated RBC Nucleated RBC % Sodium Potassium Chloride Carbon Dioxide Anion Gap BUN Creatinine Est GFR ( Amer) Est GFR (Non-Af Amer) BUN/Creatinine Ratio Glucose POC Glucose (mg/dL) 130 H Calcium Total Bilirubin AST ALT Alkaline Phosphatase Total Protein Albumin Globulin Albumin/Globulin Ratio TSH Urine Color Yellow Urine Appearance Cloudy Urine pH 5.0 Ur Specific [place] 1.026 Urine Protein 1+(30 mg/dl) A Urine Ketones Trace A Urine Blood Negative Urine Nitrate Negative Urine Bilirubin Negative Urine Urobilinogen Negative Ur Leukocyte Esterase Negative Urine WBC (Auto) Absent Urine RBC (Auto) Absent Ur Squamous Epith Cells Present A Urine Bacteria Absent Hyaline Casts Present A Urine Glucose 1+(50 mg/dl) A Urine Ascorbic Acid * A Salicylates Urine Opiates Screen None detected Acetaminophen Ur Barbiturates Screen None detected Ur Phencyclidine Scrn None detected Ur Amphetamines Screen None detected U Benzodiazepines Scrn None detected Urine Cocaine Screen None detected U Cannabinoids Screen None detected Serum Alcohol 02/05/18 02/05/18 13:11 13:11 WBC 8.9 RBC 5.34 Hgb 14.7 Hct 43 MCV 81 MCH 28 MCHC 34 RDW 14 Plt Count 186 MPV 8.7 Neut % (Auto) 76.1 Lymph % (Auto) 15.1 L [place] % (Auto) 8.0 H Eos % (Auto) 0.4 Baso % (Auto) 0.4 Absolute Neuts (auto) 6.8 Absolute Lymphs (auto) 1.3 Absolute Monos (auto) 0.7 Absolute Eos (auto) 0 Absolute Basos (auto) 0 Absolute Nucleated RBC 0 Nucleated RBC % 0.1 Sodium 138 L Potassium 3.5 Chloride 113 H Carbon Dioxide 19 L Anion Gap 6 BUN 23 Creatinine 1.00 Est GFR ( Amer) 98.7 Est GFR (Non-Af Amer) 76.7 BUN/Creatinine Ratio 23.0 H Glucose 136 H POC Glucose (mg/dL) Calcium 8.9 Total Bilirubin 0.60 AST 23 ALT 33 Alkaline Phosphatase 72 Total Protein 6.4 Albumin 4.2 Globulin 2.2 Albumin/Globulin Ratio 1.9 TSH 1.08 Urine Color Urine Appearance Urine pH Ur Specific [place] Urine Protein Urine Ketones Urine Blood Urine Nitrate Urine Bilirubin Urine Urobilinogen Ur Leukocyte Esterase Urine WBC (Auto) Urine RBC (Auto) Ur Squamous Epith Cells Urine Bacteria Hyaline Casts Urine Glucose Urine Ascorbic Acid Salicylates < 2.50 Urine Opiates Screen Acetaminophen < 15 Ur Barbiturates Screen Ur Phencyclidine Scrn Ur Amphetamines Screen U Benzodiazepines Scrn Urine Cocaine Screen U Cannabinoids Screen Serum Alcohol < 10
[2018-02-06] MEDS ORDERED: QUINAPRIL 40 MG PO ONE (08:00)
--- NOTE | 2018-02-06 11:39 | CONSULT ---
Consult Consult: Personal Care Worker met with patient and his , Ailyn. Patient denies suicidal ideation and reports desire to be discharged. He states that he has benefitted from talking with flex RN, Jenni. He reports desire to return to his usual routine of exercise and work. He and his are going to attend counseling together and he has an appointment with Maggi Jensen at 5pm today. Ailyn reports Maggi has offered to see him more frequently. Ailyn and Jairo report utilizing a gun safe and that he does not have access to it. 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
[2018-02-06 12:29] VITALS: BP 126/73
--- NOTE | 2018-02-07 00:08 | ED ---
Parveen Garcia Natalie, scribed for Mary Sanchez MD on 02/06/18 at 1229 . Progress - Progress Note Progress Note: The pt states that he has nasal and sinus congestion started five days ago. He denies SI. He will be discharged home under stable conditions. He will be prescribed Augmentin and Doxycycline. Pt is agreeable with this plan. Appearance: Ill-appearing, moderate pain distress, Well-nourished Skin: Warm, color reflects adequate perfusion Head: Normal Head/Face inspection, atraumatic Eyes: Conjunctiva clear ENT: Normal inspection Neck: Supple, no nodes, no JVD. Respiratory: Lungs clear, Decreased breath sounds throughout, no respiratory distress, nasal congestion Cardio: RRR, No murmur, pulses normal, brisk capillary refill Abdomen: soft, nontender Bowel sounds: present Musculoskeletal: Strength Intact/ ROM intact. No calf tenderness. No edema. Psychological: Normal Neuro: Alert, muscle tone normal, no focal deficit - Consult/PCP Time Called: 15:50 Course/Dx - Course Course Of Treatment: Medications reviewed. Allergies noted. Patient signed out to Dr. Iglesias at shift change, awaiting MHE. After shift change, the pt will be discharged home under stable conditions. He is diagnosed with despressive disorder (non-specific), bronchitis, and sinusitis. He is prescribed Augmentin and Doxycycline. Pt is agreeable with this plan. - Diagnoses Provider Diagnoses: Mental health problem, Depressive disorder, not elsewhere classified, Sinusitis , Bronchitis Discharge - Sign-Out/Discharge Documenting (check all that apply): Discharge/Admit/Transfer - Discharge Plan Condition: Stable Disposition: HOME Prescriptions: Amoxicillin/Clavulanate TAB* [Augmentin TAB 875*] 875 mg PO BID #20 tab DOXYcycline CAP(*) [DOXYcycline 100MG CAP(*)] 100 mg PO BID #20 cap Patient Education Materials: Sinusitis (ED), Depression (ED), Acute Bronchitis (ED) Forms: *Work Release Referrals: Adali Tubbs MD [Primary Care Provider] - 2 Days - Billing Disposition and Condition Condition: STABLE Disposition: HOME The documentation as recorded by the Praveen ferguson Natalie accurately reflects the service I personally performed and the decisions made by , Mary Sanchez MD.
== END 2018-02-06 13:21 | disposition home or self-care (01) ==
LOC: ED 12:40
DX: F32.9 Major depressive disorder, single episode, unspecified (principal); J40 Bronchitis, not specified as acute or chronic; J32.9 Chronic sinusitis, unspecified
CPT/HCPCS: 36415; 80053; 80307; 80320; 80329; 81003; 81015; 84443; 85025; 93005; 99284; A9270-GY; G0480

== ENCOUNTER 2018-12-26 17:32 | Emergency (ER) | payer BC ==
[2018-12-26 19:42] VITALS: BP 131/73
--- NOTE | 2018-12-26 19:46 | UC ---
UC General HPI - HPI Summary HPI Summary: last pm sudden headache, bodyaches, fever/chills and cough. hx chronic bronchitis. 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 - History of Current Complaint Stated Complaint: COUGH, CHEST CONGESTION Time Seen by Provider: 12/26/18 19:38 Hx Obtained From: Patient Associated Signs & Symptoms: Negative: Chest Pain, Diarrhea, Vomiting - Allergy/Home Medications Allergies/Adverse Reactions: Allergies Allergy/AdvReac Type Severity Reaction Status Date / Time enalapril Allergy Rash Verified 12/26/18 19:43 enalaprilat [From Vasotec] Allergy Rash Verified 12/26/18 19:43 sitagliptin [From Januvia] Allergy Rash Verified 12/26/18 19:43 Home Medications: Home Medications Propranolol TAB* [Inderal TAB*] 40 mg PO DAILY 12/26/18 [History Confirmed 12/26] PMH/Surg Hx/FS Hx/Imm Hx - Additional Past Medical History Additional PMH: allergies Endocrine History: Diabetes Cardiovascular History: Hypertension Respiratory History: Bronchitis - chronic Other History Of: Negative For: HIV, Hepatitis B, Hepatitis C - Surgical History Surgical History: Yes Surgery Procedure, Year, and Place: bi lat shoulders, L knee, mass removed from abdomen 2002. right knee with DVT x3 following in right leg - Family History Known Family History: Positive: Cardiac Disease, Hypertension, Diabetes - Social History Alcohol Use: None Substance Use Type: None Smoking Status (MU): Never Smoked Tobacco - Immunization History Most Recent Influenza Vaccination: 2016 Most Recent Pneumonia Vaccination: FALL 2015 Review of Systems All Other Systems Reviewed And Are Negative: Yes Constitutional: Positive: Fever, Chills Respiratory: Positive: Cough Musculoskeletal: Positive: Myalgia Neurological: Positive: Headache Physical Exam Triage Information Reviewed: Yes Appearance: Ill-Appearing - but non toxic Vital Signs Reviewed: Yes Eyes: Positive: Conjunctiva Clear ENT: Positive: Pharynx normal, TMs normal. Negative: Nasal drainage Neck: Positive: Supple, Nontender, No Lymphadenopathy Respiratory: Positive: Lungs clear, Normal breath sounds Cardiovascular: Positive: RRR, No Murmur Abdomen Description: Positive: Nontender, No Organomegaly, Soft Bowel Sounds: Positive: Present Musculoskeletal: Positive: ROM Intact Neurological: Positive: Alert Psychological: Positive: Age Appropriate Behavior Skin Exam: Normal Course/Dx - Course Course Of Treatment: DIAGNOSTICS: RAPID FLU=POSITIVE - Diagnoses Provider Diagnosis: Influenza A Discharge - Sign-Out/Discharge Documenting (check all that apply): Patient Departure All imaging exams completed and their final reports reviewed: No Studies - Discharge Plan Condition: Stable Disposition: HOME Prescriptions: Oseltamivir CAP* [Tamiflu CAP*] 75 mg PO BID 5 Days #10 cap Patient Education Materials: Influenza (ED) Forms: *Work Release Referrals: Adali Tubbs MD [Primary Care Provider] - Additional Instructions: FOLLOW UP WITH PRIMARY CARE IN 5-7 DAYS OR SOONER IF WORSE. - Billing Disposition and Condition Condition: STABLE Disposition: Home - Attestation Statements Provider Attestation: Per institutional requirements, I have reviewed the chart, however, I was not consulted specifically or made aware of this patient by the midlevel provider. I did not personally evaluate, interact with , or disposition this patient.
[2018-12-26 20:04] LABS: Influenza A Molecular POSITIVE (Negative)
== END 2018-12-26 20:23 | disposition home or self-care (01) ==
LOC: UCCORT 17:32
DX: J10.1 Influenza due to other identified influenza virus with other respiratory manifestations (principal); E11.9 Type 2 diabetes mellitus without complications; I10 Essential (primary) hypertension; J42 Unspecified chronic bronchitis; Z88.8 Allergy status to other drugs, medicaments and biological substances
CPT/HCPCS: 99212; G0463